=== PATIENT | male | born 1995 | race Two or more races ===

== ENCOUNTER 2017-05-31 23:14 | Emergency (ER) | payer OTHER ==
[~2017-05-31] VITALS: Ht 167.6 cm; Wt 63.5 kg
[2017-05-31 23:25] VITALS: BP 145/83
[2017-06-01] MEDS ORDERED: IBUPROFEN600 MG ORAL (00:12)
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
[2017-06-01 00:20] VITALS: BP 145/83
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
== END 2017-06-01 00:20 | disposition home or self-care (01) ==
LOC: EMR 23:55
DX: S09.8XXA Other specified injuries of head, initial encounter (principal); S80.211A Abrasion, right knee, initial encounter; S60.221A Contusion of right hand, initial encounter; V03.99XA Pedestrian with other conveyance injured in collision with car, pick-up truck or van, unspecified whether traffic or nontraffic accident, initial encounter; Y93.01 Activity, walking, marching and hiking; Y92.410 Unspecified street and highway as the place of occurrence of the external cause
CPT/HCPCS: 70450; 99284